=== PATIENT | male | born 1995 | race African-American/Black ===

== ENCOUNTER 2016-07-08 02:09 | Emergency (ER) | payer MEDICAID ==
[2016-07-08] MEDS ORDERED: LORAZEPAM 1 MG TABLET PO ONE (02:42)
--- NOTE | 2016-07-08 02:43 | ER Document Report ---
ED General - General Chief Complaint: Anxiety Stated Complaint: ANXIETY Notes: Patient is a 21-year-old male presents with concerns of chest pain. States that he was sitting on his couch and he began to experience left-sided chest pain that was sharp and stabbing in nature. Nothing improved or worsen the pain. States after several minutes of the pain he began to experience shortness of breath and began breathing quickly. He felt "like my legs were full of ice" and states she was unable to get up off the couch without difficulty. States he has a long-standing history of similar episodes in the past. He denies any personal cardiac history. No history of DVT or pulmonary embolus. TRAVEL OUTSIDE OF THE [place] IN LAST 30 DAYS: No - Related Data Allergies/Adverse Reactions: amoxicillin [Amoxicillin] Allergy (Verified 11/11/15 21:30) Anaphylaxis ampicillin [Ampicillin] Allergy (Verified 11/11/15 21:30) Anaphylaxis Penicillins Allergy (Verified 11/11/15 21:30) Anaphylaxis Past Medical History - General Information source: Patient - Social History Smoking Status: Never Smoker Frequency of alcohol use: None Drug Abuse: None Lives with: Family Family History: Reviewed & Not Pertinent Pulmonary Medical History: Reports: Hx Asthma - Immunizations Immunizations up to date: Yes Hx Diphtheria, Pertussis, Tetanus Vaccination: Yes Review of Systems - Review of Systems Notes: Constitutional: Negative for fever. HENT: Negative for sore throat. Eyes: Negative for visual changes. Cardiovascular: Positive for chest pain. Respiratory: Positive for shortness of breath. Gastrointestinal: Negative for abdominal pain, vomiting or diarrhea. Genitourinary: Negative for dysuria. Musculoskeletal: Negative for back pain. Skin: Negative for rash. Neurological: Negative for headaches, weakness or numbness. 10 point ROS negative except as marked above and in HPI. Physical Exam - Vital signs Interpretation: Normal Notes: PHYSICAL EXAMINATION: GENERAL: Well-appearing, well-nourished and in no acute distress. HEAD: Atraumatic, normocephalic. EYES: Pupils equal round and reactive to light, extraocular movements intact, sclera anicteric, conjunctiva are normal. ENT: nares patent, oropharynx clear without exudates. Moist mucous membranes. NECK: Normal range of motion, supple without lymphadenopathy LUNGS: Breath sounds clear to auscultation bilaterally and equal. No wheezes rales or rhonchi. HEART: Regular rate and rhythm without murmurs ABDOMEN: Soft, nontender, normoactive bowel sounds. No guarding, no rebound. No masses appreciated. EXTREMITIES: Normal range of motion, no pitting or edema. No cyanosis. NEUROLOGICAL: No focal neurological deficits. Moves all extremities spontaneously and on command. PSYCH: Anxious, tearful SKIN: Warm, Dry, normal turgor, no rashes or lesions noted. Course - Re-evaluation Re-evalutation: 07/08/16 02:43 Patient presents with history most consistent with an acute panic attack. The patient admits that these are symptoms identical to prior occasions of panic. There was a clear trigger for tonight's episode. Symptoms did resolve after receiving medical therapy here in the emergency department. Vitals otherwise within normal limits. I do not suspect an acute pulmonary embolus, ACS, pneumothorax, or any other acute left threatening pathology based on history and exam. I do not believe any labs or imaging are indicated at this time. At this time will discharge with return precautions and follow-up recommendations. Verbal discharge instructions given a the bedside and opportunity for questions given. Medication warnings reviewed. Patient is in agreement with this plan and has verbalized understanding of return precautions and the need for primary care follow-up in the next 24-72 hours. - Diagnostic Test Radiology reviewed: Image reviewed, Reports reviewed Radiology results interpreted by me: 07/08/16 04:15 Chest x-ray: No acute infiltrate or pneumothorax - EKG Interpretation by Me Additional EKG results interpreted by me: 07/08/16 04:15 Sinus bradycardia. Rate 53. No ST elevations or depressions. QTC is 380. Discharge - Discharge Clinical Impression: Panic attack, Chest wall pain Condition: Good Disposition: HOME, SELF-CARE Instructions: Anxiety ([facility]) Additional Instructions: You were seen today for symptoms that are most suggestive of a panic attack. The symptoms can come on without any clear trigger. It is important that you follow-up with your primary care physician regarding anxiety and panic attacks as there are medications that can help prevent these attacks or stop them once they start. Please return to the emergency department immediately if you began having chest pain, shortness of breath, vomiting, difficulty breathing, or if you are again having a panic attack. Please also return if you have any additional symptoms that are concerning to you.
[2016-07-08 04:31] VITALS: BP 107/63
--- NOTE | 2016-07-09 08:15 | EKG REPORT ---
SEVERITY:- NORMAL ECG - SINUS RHYTHM ST ELEV, PROBABLE NORMAL EARLY REPOL PATTERN : Confirmed by: Nancy Cyr MD 09-Jul-2016 08:14:37
== END 2016-07-08 04:29 | disposition home or self-care (01) ==
LOC: ER 02:09
DX: F41.0 Panic disorder [episodic paroxysmal anxiety] (principal); R07.89 Other chest pain
CPT/HCPCS: 36415; 71010; 84484; 93005; 93010; 99284

== ENCOUNTER 2016-09-23 14:06 | Emergency (ER) | payer MEDICAID, OTHER ==
[2016-09-23 14:31] VITALS: BP 135/70
--- NOTE | 2016-09-23 14:55 | ER Document Report ---
ED General - General Chief Complaint: Fever Stated Complaint: BODY PAIN,MOUTH PAIN,DIARRHEA Time Seen by Provider: 09/23/16 14:45 Mode of Arrival: Ambulatory Information source: Patient Notes: 21-year-old male with one-week history of bilateral sore throat left greater than right along with diffuse body aches, diarrhea, sharp anterior chest pain with deep breathing, and pain in the left upper tooth which she says it been fractured for about 3 years. He is not aware of any fevers or chills at home. He denies any specific chest or abdominal pain. Physical Exam: General: Alert, appears well. HEENT: Normocephalic. Atraumatic. PERRLA. Extraocular movements intact. Discs sharp Tympanic membranes and canals clear oropharynx shows erythema and whitish like to tonsillar area bilaterally. There is dental defect to left upper molar no surrounding erythema or discharge suggestive of acute infection. He has no stridor or hoarseness or drooling Neck: Supple tender adenopathy bilaterally trachea midline no masses palpated. Respiratory: No respiratory distress. Clear and equal breath sounds bilaterally. Cardiovascular: Regular rate and rhythm. Abdominal: Normal Inspection. Soft, non-tender. No distension. Normal Bowel Sounds. Back: Non-tender. No deformity or step off. Extremities warm to plus pulses of cyanosis no edema Neurological: Each clear mentation normal Psychological: Normal affect. Normal Mood. Skin: Warm. Dry. Normal color. TRAVEL OUTSIDE OF THE [place] IN LAST 30 DAYS: No - Related Data Allergies/Adverse Reactions: amoxicillin [Amoxicillin] Allergy (Verified 11/11/15 21:30) Anaphylaxis ampicillin [Ampicillin] Allergy (Verified 11/11/15 21:30) Anaphylaxis Penicillins Allergy (Verified 11/11/15 21:30) Anaphylaxis Past Medical History - Social History Smoking Status: Current Every Day Smoker Chew tobacco use (# tins/day): No Frequency of alcohol use: Occasional Family History: Reviewed & Not Pertinent Patient has suicidal ideation: No Patient has homicidal ideation: No Pulmonary Medical History: Reports: Hx Asthma Renal/ Medical History: Denies: Hx Peritoneal Dialysis - Immunizations Immunizations up to date: Yes Hx Diphtheria, Pertussis, Tetanus Vaccination: Yes Review of Systems - Review of Systems Constitutional: Malaise EENT: See HPI Cardiovascular: See HPI Respiratory: denies: Cough, Short of breath Gastrointestinal: denies: Vomiting Genitourinary: denies: Burning Musculoskeletal: denies: Back pain Skin: denies: Rash Hematologic/Lymphatic: Enlarged lymph nodes Neurological/Psychological: denies: Weakness, Numbness Physical Exam - Vital signs Vitals: Temp Pulse Resp BP Pulse Ox 101.2 F H 78 18 135/70 H 95 09/23/16 14:28 09/23/16 14:28 09/23/16 14:28 09/23/16 14:28 09/23/16 14:28 Course - Re-evaluation Re-evalutation: 09/23/16 14:48 Patient presentation and exam consistent with acute pharyngitis. We discharged with Zithromax Z-Luis skims penicillin allergy Predental defect will follow-up with the dental office - Vital Signs Vital signs: Temp Pulse Resp BP Pulse Ox 101.2 F H 78 18 135/70 H 95 09/23/16 14:28 09/23/16 14:28 09/23/16 14:28 09/23/16 14:28 09/23/16 14:28 Discharge - Discharge Clinical Impression: Dental caries Acute pharyngitis Qualifiers: Pharyngitis/tonsillitis etiology: unspecified etiology Qualified Code(s): J02.9 - Acute pharyngitis, unspecified Condition: Stable Disposition: HOME, SELF-CARE Additional Instructions: Sore Throat Sore throats may be caused by viruses, bacteria, or fungi. Most are due to a virus, and must get better on their own. Bacterial sore throats, particularly those due to "strep," need treatment with antibiotics. If an antibiotic is prescribed, be sure to take the medication for a full 10 days. Failure to take the antibiotic can result in complications such as rheumatic fever. Sometimes, an injection of antibiotics is given instead of pills or liquid. This single "shot" is equal in effectiveness to the oral medication. To relieve symptoms, take acetaminophen for pain. Sip clear liquids frequently, or eat popsicles or ice chips. Anesthetic sprays or lozenges may help. Make sure the air in the room is not too dry. Avoid using decongestants or antihistamines. Call the doctor if there is no improvement in two days, or if you have difficulty breathing, increasing throat pain, high fever, rash, or frequent vomiting. Prescriptions: Azithromycin [Zithromax 250 mg Tablet] 250 mg PO ASDIR PRN #6 tablet PRN Reason: Referrals: [facility] [Provider Group] - Follow up as needed [facility] [Provider Group] - Follow up as needed
== END 2016-09-23 16:00 | disposition home or self-care (01) ==
LOC: ER 14:06
DX: J02.9 Acute pharyngitis, unspecified (principal); K02.9 Dental caries, unspecified; R19.7 Diarrhea, unspecified; R07.1 Chest pain on breathing; R53.81 Other malaise; R59.1 Generalized enlarged lymph nodes; F17.200 Nicotine dependence, unspecified, uncomplicated; J45.909 Unspecified asthma, uncomplicated; Z87.892 Personal history of anaphylaxis; Z88.0 Allergy status to penicillin
CPT/HCPCS: 99283

== ENCOUNTER 2018-08-26 15:23 | Emergency (ER) | payer MEDICAID ==
[2018-08-26 15:31] VITALS: BP 136/67
--- NOTE | 2018-08-26 15:53 | ER Document Report ---
HPI - HPI Pain Level: 3 Notes: Patient is a 23-year-old male who presents requesting a work note as he missed work today for nausea and vomiting last night. Patient believes that he ate bad food at a [place] restaurant yesterday abdominal cramping with nausea and vomiting. Those symptoms have since resolved. Patient states that his work is requesting a note. He has no other concerns or complaints. He is eating and drinking without difficulty. He is urinating normally and having normal bowel moves. No significant past medical history or surgical history to his abdomen. Denies any headache, fever, URI, sore throat, chest pain, palpitations, syncope, cough, shortness of breath, wheeze, dyspnea, diarrhea, urinary retention, dysuria, hematuria, or rash. - ROS Systems Reviewed and Negative: Yes All other systems reviewed and negative - REPRODUCTIVE Reproductive: DENIES: : Past Medical History - Social History Smoking Status: Current Every Day Smoker Family History: Reviewed & Not Pertinent Pulmonary Medical History: Reports: Hx Asthma Renal/ Medical History: Denies: Hx Peritoneal Dialysis - Immunizations Immunizations up to date: Yes Hx Diphtheria, Pertussis, Tetanus Vaccination: Yes Vertical Provider Document - CONSTITUTIONAL Agree With Documented VS: Yes Notes: PHYSICAL EXAMINATION: GENERAL: Well-appearing, well-nourished and in no acute distress. HEAD: Atraumatic, normocephalic. EYES: Pupils equal round and reactive to light, extraocular movements intact, sclera anicteric, conjunctiva are normal. ENT: Nares patent and without discharge. oropharynx clear without exudates. No tonsilar hypertrophy or erythema. Moist mucous membranes. NECK: Normal range of motion, supple without lymphadenopathy LUNGS: Breath sounds clear to auscultation bilaterally and equal. No wheezes rales or rhonchi. HEART: Regular rate and rhythm without murmurs, rubs, gallops. ABDOMEN: Soft, nontender, nondistended abdomen. No guarding, no rebound. No masses appreciated. Normal bowel sounds present. No CVA tenderness bilaterally. PSYCH: Normal mood, normal affect. SKIN: Warm, Dry, normal turgor, no rashes or lesions noted. - INFECTION CONTROL TRAVEL OUTSIDE OF THE [place] IN LAST 30 DAYS: No Course - Re-evaluation Re-evalutation: 08/26/18 15:55 Patient is an afebrile, well-hydrated, 23-year-old male who presents to the emergency department with resolved nausea, vomiting, and abdominal cramping. Vitals are acceptable without significant tachycardia, tachypnea, or hypoxia. PE is otherwise unremarkable. Patient's abdomen is soft nontender. He is nontoxic-appearing and is tolerating p.o. without difficulty. Patient is currently asymptomatic. No labs or imaging warranted. Work note will be provided. Low suspicion/risk for acute appendicitis, bowel obstruction, acute cholecystitis, perforated diverticulitis, incarcerated hernia, pancreatitis, perforated ulcer, peritonitis, sepsis, testicular torsion, or other systemic emergent condition at this time. Patient is aware that his condition can change from initial presentation and he needs to monitor symptoms closely and seek medical attention if any acute changes. Conservative measures otherwise for sym ptoms. Recheck with PCM in 2-3 days. 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 Return to the ED with any worsening/concerning symptoms otherwise as reviewed in discharge. Patient is in agreement. - Vital Signs Vital signs: Temp Pulse Resp BP Pulse Ox 98.0 F 62 16 136/67 H 98 08/26/18 15:29 08/26/18 15:29 08/26/18 15:29 08/26/18 15:29 08/26/18 15:29 Discharge - Discharge Clinical Impression: Nausea & vomiting Qualifiers: Vomiting type: unspecified Vomiting Intractability: non-intractable Qualified Code(s): R11.2 - Nausea with vomiting, unspecified Condition: Stable Disposition: HOME, SELF-CARE Additional Instructions: Maintain adequate fluid and food intake Watkins diet ([employer] Bananas, rice, apples, toast, etc tylenol if needed Monitor for any worsening symptoms Make sure you are staying hydrated enough to urinate and have normal BM's Recheck with your PCM in 2-3 days Consider consult with Gastroenterology for ongoing/worsening symptoms Return to the ED with any worsening symptoms and/or development of fever, headache, chest pain, palpitations, syncope, shortness of breath, trouble breathing, abdominal pain, n/v/d, blood in stool/urine, weakness, or other worsening symptoms that are concerning to you. Forms: Elevated Blood Pressure, Smoking Cessation Education, Return to Work Referrals: MOODY AGGARWAL MD [ACTIVE STAFF] - Follow up as needed
== END 2018-08-26 16:05 | disposition home or self-care (01) ==
LOC: ER 15:23
DX: R11.2 Nausea with vomiting, unspecified (principal); R10.84 Generalized abdominal pain; F17.200 Nicotine dependence, unspecified, uncomplicated
CPT/HCPCS: 99283

== ENCOUNTER 2018-08-27 22:00 | Emergency (ER) | payer MEDICAID ==
[2018-08-27 22:39] LABS: ABSOLUTE EOSINOPHILS # (AUTO) 0.2 10^3/uL (0.0-0.6); ABSOLUTE LYMPHOCYTES (AUTO) 2.6 10^3/uL (0.5-4.7); ABSOLUTE MONOCYTES (AUTO) 0.6 10^3/uL (0.1-1.4); ABSOLUTE NEUT (AUTO) 4.4 10^3/uL (1.7-8.2); BASOPHILS % (AUTO) 0.5 % (0-2); EOSINOPHILS % (AUTO) 2.9 % (0-6); HEMATOCRIT 39.8 % (37.9-51.0); HEMOGLOBIN 14.4 g/dL (13.5-17.0); LYMPHOCYTES % (AUTO) 33.3 % (13-45); MEAN CORPUSCULAR HEMOGLOBIN 30.1 pg (27.0-33.4); MEAN CORPUSCULAR HGB CONC 36.3 g/dL (32.0-36.0); MEAN CORPUSCULAR VOLUME 83 fl (80-97); MONOCYTES % (AUTO) 7.3 % (3-13); PLATELET COUNT 229 10^3/uL (150-450); RED CELL DISTRIBUTION WIDTH 13.2 % (11.5-14.0); TOTAL CELLS COUNTED % (AUTO) 100 %; WHITE BLOOD COUNT 7.8 10^3/uL (4.0-10.5)
[2018-08-27 22:43] LABS: APPEARANCE,URINE CLEAR; BILIRUBIN,URINE NEGATIVE (NEGATIVE); COLOR,URINE YELLOW; GLUCOSE, URINE NEGATIVE (NEGATIVE); KETONES,URINE NEGATIVE (NEGATIVE); LEUKOCYTE ESTERASE,URINE NEGATIVE (NEGATIVE); NITRITE,URINE NEGATIVE (NEGATIVE); PROTEIN,URINE NEGATIVE (NEGATIVE); UROBILINOGEN,URINE NEGATIVE mg/dL (<2.0)
[2018-08-27 22:57] LABS: ALANINE AMINOTRANSFERASE 37 U/L (21-72); ALBUMIN 3.8 g/dL (3.5-5.0); ALKALINE PHOSPHATASE 62 U/L (38-126); ANION GAP 5 (5-19); ASPARTATE AMINO TRANSFERASE 21 U/L (17-59); BILIRUBIN,DIRECT 0.2 mg/dL (0.0-0.4); BILIRUBIN,TOTAL 0.3 mg/dL (0.2-1.3); BLOOD UREA NITROGEN 18 mg/dL (7-20); CALCIUM 9.3 mg/dL (8.4-10.2); CARBON DIOXIDE 28 mmol/L (22-30); CHLORIDE 106 mmol/L (98-107); GLUCOSE 82 mg/dL (75-110); LIPASE 271.9 U/L (23-300); POTASSIUM 4.1 mmol/L (3.6-5.0); SODIUM 139.1 mmol/L (137-145); TOTAL PROTEIN 6.4 g/dL (6.3-8.2)
== END 2018-08-27 23:57 | disposition left against medical advice (07) ==
LOC: ER 22:00
DX: Z53.21 Procedure and treatment not carried out due to patient leaving prior to being seen by health care provider (principal)
CPT/HCPCS: 36415; 80053; 81001; 83690; 85025

== ENCOUNTER 2019-08-11 16:08 | Emergency (ER) | payer MEDICAID ==
--- NOTE | 2019-08-11 16:22 | ER Document Report ---
ED General - General Chief Complaint: Foot Injury Stated Complaint: FOOT INJURY Notes: Patient is a 24-year-old -[place] male with no significant past medical history presents to the emergency department the chief complaint of left ankle pain that occurred 3 days ago. He states he fell down several flights of stairs. He reports the ankle everted when he fell. States he has been trying to see if it would get better on its own but the pain persists so his urged him to come. States pain is worse with dorsiflexion and plantarflexion of the foot. Pain diffusely across the ankle, radiates to the back of the leg. Denies any weakness, numbness, tingling. TRAVEL OUTSIDE OF THE [place] IN LAST 30 DAYS: No - Related Data Allergies/Adverse Reactions: amoxicillin [Amoxicillin] Allergy (Verified 08/27/18 22:01) Anaphylaxis ampicillin [Ampicillin] Allergy (Verified 08/27/18 22:01) Anaphylaxis Penicillins Allergy (Verified 08/27/18 22:01) Anaphylaxis Past Medical History - Social History Smoking Status: Unknown if Ever Smoked Family History: Reviewed & Not Pertinent Pulmonary Medical History: Reports: Hx Asthma Renal/ Medical History: Denies: Hx Peritoneal Dialysis - Immunizations Immunizations up to date: Yes Hx Diphtheria, Pertussis, Tetanus Vaccination: Yes Review of Systems - Review of Systems Musculoskeletal: Joint pain -: Yes All other systems reviewed and negative Physical Exam - Vital signs Vitals: Temp Pulse Resp BP Pulse Ox 98.9 F 62 20 181/75 H 97 08/11/19 16:12 08/11/19 16:12 08/11/19 16:12 08/11/19 16:12 08/11/19 16:12 - General General appearance: Appears well, Alert In distress: None - Respiratory Respiratory status: No respiratory distress Chest status: Nontender Breath sounds: Normal Chest palpation: Normal - Cardiovascular Rhythm: Regular Heart sounds: Normal auscultation - Extremities Calf: Tender Ankle: Tender, Other - Full passive range of motion. Gait limited by pain. 2+ DP/PT. No deformity step-off or crepitus. - Neurological Neuro grossly intact: Yes Cognition: Normal Orientation: AAOx4 Manuel Coma Scale Eye Opening: Spontaneous Woodruff Coma Scale Verbal: Oriented Woodruff Coma Scale Motor: Obeys Commands Manuel Coma Scale Total: 15 Speech: Normal Motor strength normal: LUE, RUE, LLE, RLE Sensory: Normal - Psychological Associated symptoms: Normal affect, Normal mood - Skin Skin Temperature: Warm Skin Moisture: Dry Skin Color: Normal Course - Vital Signs Vital signs: Temp Pulse Resp BP Pulse Ox 98.9 F 62 20 181/75 H 97 08/11/19 16:12 08/11/19 16:12 08/11/19 16:12 08/11/19 16:12 08/11/19 16:12 Discharge - Discharge Clinical Impression: Muscle strain Ankle sprain Qualifiers: Encounter type: initial encounter Involved ligament of ankle: unspecified ligament Laterality: unspecified laterality Qualified Code(s): S93.409A - Sprain of unspecified ligament of unspecified ankle, initial encounter Condition: Stable Disposition: HOME, SELF-CARE Instructions: Sprained Ankle ([facility]) Additional Instructions: Follow-up with your regular doctor in 2 to 3 days for reevaluation. Return here or any ER immediately with any new, persistent or worsening symptoms. Prescriptions: Ketorolac Tromethamine [Toradol 10 mg Tablet] 10 mg PO Q8HP PRN #24 tablet PRN Reason: Forms: Return to Work Referrals: ELAINE GRANADOS JR, DO [ACTIVE PROVISIONAL STAFF] - Follow up as needed
--- NOTE | 2019-08-11 16:51 | RADIOLOGY REPORT (SQ) ---
EXAM DESCRIPTION: ANKLE LEFT COMPLETE IMAGES COMPLETED DATE/TIME: 08/11/2019 4:38 pm REASON FOR STUDY: pain, fall COMPARISON: None. NUMBER OF VIEWS: Three views. TECHNIQUE: AP, lateral, and oblique radiographic images acquired of the left ankle. LIMITATIONS: None. FINDINGS: MINERALIZATION: Normal. BONES: No acute fracture or dislocation. JOINTS: No effusions. SOFT TISSUES: No soft tissue swelling. OTHER: No other finding. IMPRESSION: No acute osseous abnormality of the left ankle. TECHNICAL DOCUMENTATION: JOB ID: [id number] 2010 [employer]- All Rights Reserved Reading location - IP/workstation name: [email or web address]
[2019-08-11 17:00] VITALS: BP 151/91
== END 2019-08-11 17:06 | disposition home or self-care (01) ==
LOC: ER 16:08
DX: S93.409A Sprain of unspecified ligament of unspecified ankle, initial encounter (principal); T14.8XXA Other injury of unspecified body region, initial encounter; M25.572 Pain in left ankle and joints of left foot; W10.9XXA Fall (on) (from) unspecified stairs and steps, initial encounter; J45.909 Unspecified asthma, uncomplicated; Z87.892 Personal history of anaphylaxis; Z88.0 Allergy status to penicillin
CPT/HCPCS: 99283